=== PATIENT | female | born 1990 | race Caucasian/White ===

== ENCOUNTER 2017-06-26 01:40 | Inpatient (IN) | END 2017-06-27 16:12 | disposition home or self-care (01) | DRG 775 ==

== ENCOUNTER 2018-10-07 03:07 | Inpatient (IN) | payer MEDICAID, OTHER ==
[~2018-10-07] VITALS: Ht 152.4 cm; Wt 65.9 kg
[~2018-10-07 03:07] MED LIST: FOLI0.4T2 PO; PREN-19 PO
[2018-10-07 03:28] VITALS: BP 108/57; PULSE 60; RESP 16
[2018-10-07] MEDS ORDERED: LACTATED RINGER'S 1,000 ML IV PRN (04:16)
[2018-10-07] MEDS ORDERED: LACTATED RINGER'S 1,000 ML IV SCH (04:16)
[2018-10-07] MEDS ORDERED: MISOPROSTOL 200 MCG TAB PR PRN ×2 (04:30→09:00)
[2018-10-07] MEDS ORDERED: OXYTOCIN 30 UNITS/LR 500 ML IV SCH ×2 (04:30)
[2018-10-07] MEDS ORDERED: CARBOPROST 250 MCG INJ IM PRN ×2 (04:30→09:00)
[2018-10-07] MEDS ORDERED: AMPICILLIN 2 GM/NS (PMX) 100 ML IV ONE (04:30)
[2018-10-07] MEDS ORDERED: METHYLERGONOVINE 0.2 MG INJ IM PRN ×2 (04:30→09:00)
[2018-10-07] MEDS ORDERED: IBUPROFEN 600 MG TAB PO PRN (04:30)
[2018-10-07] MEDS ORDERED: BUTORPHANOL 2 MG INJ IV PRN ×2 (04:30)
[2018-10-07] MEDS ORDERED: LIDOCAINE 1% (MPF) 30 ML INJ INJ PRN (04:30)
[2018-10-07] MEDS ORDERED: MINERAL OIL LIGHT 10 ML VIAL TOP ONE (04:30)
[2018-10-07] MEDS ORDERED: OXYTOCIN 30 UNITS/LR 500 ML IV PRN ×2 (04:30→09:00)
--- NOTE | 2018-10-07 04:34 | TRIAGE ---
OB Triage Datetime Report Generated by CPN: 10/07/2018 04:33 Datetime: 10/07/2018 03:41 Stage of : OB Triage Labor Evaluation Frequency: 5-7 Monitor Mode: External Duration (sec)2399: 60 Quality: Moderate Pattern: Normal: <= 5 Contractions in 10 Minutes Resting Tone [place]: Relaxed Heart Rate FHR Baseline Rate: 135 Monitor Mode: External US FHR Baseline Changes: No Baseline Change Variability: Moderate 6-25 bpm Accelerations: 15X15 Decelerations: Variable Category: Category II Vaginal Exam Dilatation (cms): 3.0 Effacement (%): 80 Station: -2 Exam By: Yvrose Squires Membrane Status: Intact Vaginal Bleeding: Scant Cervix, Consistency: Soft Cervix, Position: Posterior Presentation 'A': Cephalic Datetime: 10/07/2018 03:24 Time of Arrival: 10/07/2018 03:02 EGA: 38.4 Arrived By: Wheelchair Arrived From: Home Chief Complaint: c/o ucs and discharge Movement: Present Contractions: Regular Time Contractions Began: 10/06/2018 23:00 Contractions: Q5 Rupture of Membranes: Denies Vaginal Bleeding: None Vaginal Discharge: Present Recent Sexual Intercouse: Denies Abdominal Trauma: Not Applicable Patient Complaints: Contractions Time Provider Notified: 10/07/2018 04:10 Provider Notified: Dr Rock Initial Plan: EFM,SVE,UA,URINE CULTURE Datetime: 10/07/2018 03:17 Stage of : OB Triage Maternal Assessment Level of Consciousness: Keenly Alert, Responsive Headache: Denies Blurred Vision: No Nausea/Vomiting: Denies RUQ Epigastric Pain: Denies Facial Edema: None Monitor Mode: External Resting Tone [place]: Relaxed Heart Rate FHR Baseline Rate: 130 Monitor Mode: External US Pain Assessment Pain Scale: 9 Pain Presence: Intermittent Pain Type: Contraction Pain Location: Abdomen
[2018-10-07] MEDS ORDERED: AMPICILLIN 2 GM/NS (PMX) 100 ML ONE (04:50)
[2018-10-07 08:15] VITALS: BP 104/59; PULSE 65; RESP 18
[2018-10-07] MEDS ORDERED: AMPICILLIN 1 GM/NS (PMX) 50 ML IV SCH (08:30)
[2018-10-07] MEDS: SENNA/DOCUSATE NA (8.6MG/50MG) TAB PO SCH ×2 (09:00→20:38)
[2018-10-07] MEDS ORDERED: LANOLIN HPA 1 PKT TOP PRN (09:00)
[2018-10-07] MEDS ORDERED: ZOLPIDEM 5 MG TAB PO PRN (09:00)
[2018-10-07] MEDS ORDERED: OXYCODONE/ASPIRIN (4.88/325) TAB PO PRN ×2 (09:00)
[2018-10-07] MEDS ORDERED: WITCH HAZEL/GLYCERIN PAD PR PRN (09:00)
[2018-10-07] MEDS ORDERED: BENZOCAINE 20% 56 ML SPRAY TOP PRN (09:00)
[2018-10-07] MEDS: IBUPROFEN 600 MG TAB PO SCH ×4 (10:53→23:51)
--- NOTE | 2018-10-07 10:54 | HP ---
Date/Time of Note Date/Time of Note DATE: 10/07/18 TIME: 10:45 OB - History Hx of Present Free Text/Dictation 28 y.[id number] at 38w4d in labor with intact membrane. Initial VE 380/-2 CAT II tracing initially UC q 2-4min apart since 2300 10/06/18 2300 noo record is available admitted for expectant management. Chief Complaint: uc's Estimated Due Date: Oct 07, 2018 : 3 Para: 2 Care: Other Ultrasounds: Other Obstetrical Complications: None Medical Complications: None Past Family/Social History * Past Medical, Surgical, Family and Obstetric Histories reviewed from chart. Blood Type: Unknown Rubella: unknown RPR/VDRL: Unknown GBS Status: Unknown HBsAG: Negative OB Admission Exam Vital Signs Vital Signs Vital Signs Date Temp Pulse Resp B/P (MAP) Pulse Ox O2 O2 Flow FiO2 Time Delivery Rate 10/07/18 97.9 60 16 108/57 Room Air 03:28 (74) Physical Exam HEENT: WNL Heart: Rhythm Normal Lungs: Clear, Equal Abdomen: WNL Extremities: Normal Reflexes: Normal Cervical Dilatation: 3cm Effacement: Other (80%) Station: -2 Membranes: Intact Amniotic Fluid: Unevaluable Heart Rate: 130's Accelerations: Accelerations Present Decelerations: Early Decelerations Varibility: Minimum Contractions on Admission: < 5 Minutes Apart Intensity: Moderate Last 72 hours Lab Results CBC & BMP 10/07/18 04:40 OB Assessment/Plan Other Assessment: IUP 38w4d in early labor Plan: Expectant Management VARGHESE DELATORRE MD Oct 07, 2018 10:53
[2018-10-07 12:00] VITALS: BP 101/50; PULSE 60; RESP 18
[2018-10-07 16:25] VITALS: BP 109/54; PULSE 60; RESP 16
--- NOTE | 2018-10-07 19:55 | LDN ---
Date/Time of Note Date/Time of Note DATE: 10/07/18 TIME: 19:52 Delivery Summary of normal female Weeks of Gestation 38w4d Placenta Delivered: Spontaneously, Intact & Complete Meconium: none Episiotomy: No Perineal laceration: 0 Laceration repair: 000ch gut for small vaginal lceration Anesthesia type: None Estimated blood loss: 100 Sponge & Needle done & correct: Yes All needle counts correct: Yes Any foreign bodies felt in the: No Delivery Information Sex Sex: female Apgars 1 Minute: 9 5 Minute: 9 Suctioning Nose & mouth suctioned at nithin: Yes Delee suction performed: Yes Umbilical Cord Umbilical cord with: 3 Vessels Cord presentations: no nuchal cord Cord Blood was obtained: Yes Mother & Baby Disposition Disposition Mom & Baby to Maternity; Good: Yes Mom transferred to: Other Baby to NICU: No () VARGHESE DELATORRE MD Oct 07, 2018 19:55
[2018-10-07 20:30] VITALS: BP 97/54; PULSE 64; RESP 18
[2018-10-08] VITALS: BP 101/59; PULSE 61; RESP 18
[2018-10-08] MEDS ORDERED: OXYCODONE/ASPIRIN (4.88/325) TAB PO PRN ×2 (00:30)
[2018-10-08] MEDS ORDERED: MISOPROSTOL 200 MCG TAB PR PRN (00:30)
[2018-10-08] MEDS ORDERED: CARBOPROST 250 MCG INJ IM PRN (00:30)
[2018-10-08] MEDS ORDERED: LANOLIN HPA 1 PKT TOP PRN (00:30)
[2018-10-08] MEDS ORDERED: ZOLPIDEM 5 MG TAB PO PRN (00:30)
[2018-10-08] MEDS ORDERED: WITCH HAZEL/GLYCERIN PAD PR PRN (00:30)
[2018-10-08] MEDS ORDERED: METHYLERGONOVINE 0.2 MG INJ IM PRN (00:30)
[2018-10-08] MEDS ORDERED: BENZOCAINE 20% 56 ML SPRAY TOP PRN (00:30)
[2018-10-08] MEDS ORDERED: OXYTOCIN 30 UNITS/LR 500 ML IV PRN (00:30)
[2018-10-08 04:15] VITALS: BP 95/52; PULSE 61; RESP 18
[2018-10-08] MEDS: IBUPROFEN 600 MG TAB PO SCH ×4 (05:45→23:57)
[2018-10-08 08:00] VITALS: BP 100/55; PULSE 60; RESP 18
[2018-10-08] MEDS: SENNA/DOCUSATE NA (8.6MG/50MG) TAB PO SCH ×2 (12:19→22:01)
[2018-10-08 18:03] VITALS: BP 101/56; PULSE 62; RESP 18
--- NOTE | 2018-10-08 20:40 | PD.PPDC ---
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
--- NOTE | 2018-10-08 20:41 | DS ---
Date/Time of Note Date/Time of Note DATE: 10/08/18 TIME: 20:40 Obstetrical Discharge Record Final Diagnosis Final Diagnosis: Term delivered Vaginal Delivery Obstetrical Delivery: Spontaneous, Laceration, Repaired Condition on Discharge Physical Assessment Last Vitals: stable afebrile Voiding: Yes Bowel Movement: Yes Breast: Soft, non-tender, Filling Fundus: Firm Abdomen and Incision: soft nt Calf Tenderness: No Patient Condition: Fair BLADE DIETRICH MD Oct 08, 2018 20:41
[2018-10-08 21:50] VITALS: BP 103/56; PULSE 72; RESP 20
[2018-10-09 04:10] VITALS: BP 101/62; PULSE 67; RESP 18
[2018-10-09] MEDS: IBUPROFEN 600 MG TAB PO SCH (05:47)
[2018-10-09 07:30] VITALS: BP 100/59; PULSE 71; RESP 16
[2018-10-09] MEDS ORDERED: DIPHTH/TET/ACEL PERTUSS (ADULT) 0.5 ML VIAL IM* ONE (09:00)
[2018-10-09] MEDS: SENNA/DOCUSATE NA (8.6MG/50MG) TAB PO SCH (09:06)
--- NOTE | 2018-10-10 11:47 | DELSUM ---
Delivery Summary A-C Datetime Report Generated by CPN: 10/10/2018 11:47 DELIVERY PERSONNEL Chief Librarian Work With Blind: Yahir, Nidhi MATERNAL INFORMATION Delivery Anesthesia: None Medications in Delivery: LR WITH 30 UNITS OF PITOCIN/LIDOCAINE Delivery QBL (ml): 100 Placenta Cultured: No Maternal Complications: None LABOR SUMMARY EDC: 10/17/2018 00:00 No. Babies in Womb: 1 Attempted: No Labor Anesthesia: None LABOR INFORMATION Reason for Induction: Not Applicable Onset of Labor: 10/06/2018 23:00 Complete Dilatation: 10/07/2018 05:23 Oxytocin: N/A Group B Beta Strep: Done, Result Unknown Antibiotics # of Doses: AMPICILLIN Antibiotics Time of Last Dose: 10/07/2018 04:56 Steroids Given: None Reason Steroids Not Administered: Not Applicable MEMBRANES Membranes Rupture Method: Spontaneous Rupture of Membranes: 10/07/2018 05:15 Length of Rupture (hr): 0.20 Amniotic Fluid Color: Clear Amniotic Fluid Amount: Moderate Amniotic Fluid Odor: None STAGES OF LABOR Stage 1 hr: 6 Stage 1 min: 23 Stage 2 hr: 0 Stage 2 min: 4 Stage 3 hr: 0 Stage 3 min: 3 Total Time in Labor hr: 6 Total Time in Labor min: 30 VAGINAL DELIVERY Episiotomy: None Laceration Extension: First Degree Laceration Type: Vaginal Laceration Repair: Yes Initial Vag Sponge Count: 10 Final Vag Sponge Count: 10 Initial Vag Sharps Count: 1 Final Vag Sharps Count: 2 Sharps Count Correct: Yes BABY A INFORMATION Infant Delivery Date/Time: 10/07/2018 05:27 Method of Delivery: Vaginal Born in Route : No : N/A Forceps: N/A Vacuum Extraction: N/A Shoulder Dystocia : No SHOULDER DYSTOCIA BABY A Infant Delivery Date/Time: 10/07/2018 05:27 PRESENTATION/POSITION BABY A Presentation: Cephalic Cephalic Presentation: Vertex Vertex Position: Left Occipital Anterior Breech Presentation: N/A PLACENTA INFORMATION BABY A Placenta Delivery Time : 10/07/2018 05:30 Placenta Method of Delivery: Spontaneous Placenta Status: Delivered SCORES BABY A Heart Rate 1 min: >100 bpm Resp Effort 1 min: Good Cry Reflex Irritability 1 min: Cough/Sneeze/Pulls Away Muscle Tone 1 min: Active Motion Color 1 min: Body [place], Extremit Blue Resuscitation Effort 1 min: Tactile Stimulation SCORE 1 MIN: 9 Heart Rate 5 min: >100 bpm Resp Effort 5 min: Good Cry Reflex Irritability 5 min: Cough/Sneeze/Pulls Away Muscle Tone 5 min: Active Motion Color 5 min: Body [place], Extremit Blue Resuscitation Effort 5 min: Tactile Stimulation SCORE 5 MIN: 9 INFANT INFORMATION BABY A Gestational Age at Delivery: 38.4 Gestational Status: Early Term- 37- 38.6 Weeks Infant Outcome : Liveborn, with signs of life Condition : Stable Sex: Male IDENTIFICATION/MEDS BABY A ID Band Number: [id number] ID Band Location: Right Leg; Left Arm Sensor Applied: Yes Sensor Number: [id number] Sensor Location : Cord Clamp Vitamin K Given : Not Given Erythromycin Given: Not Given WEIGHT/LENGTH BABY A Infant Birthweight (gm): 3315 Infant Weight (lb): 7 Weight (oz): 5 Infant Length (in): 20.00 Length (cm): 50.80 CORD INFORMATION BABY A No. Cord Vessels: 3 Nuchal Cord : N/A Cord Blood Taken: Yes Infant Suction: Mouth; Nose ASSESSMENT BABY A Infant Complications: Multiple Variable Decels Physical Findings at Delivery: Within Normal Limits Physical Findings- Other: VOIDED X1 Infant Respirations: Appears Normal Disaster Recovery Coordinator/ALS Called : No Infant Care By: Kranthi NOLASCO RN AND Kareem ENRIQUEZ RT Transferred To: Remains with Mother
== END 2018-10-09 11:30 | disposition home or self-care (01) | DRG 807 ==
LOC: OBT 03:07 → L-D 03:07 → OBT 04:10 → PP1 08:05
PROVIDERS: ADMIT Obstetrics & Gynecology; ATTEND Obstetrics & Gynecology
PROC: 10E0XZZ Delivery of Products of Conception, External Approach (ICD-10-PCS; principal; 2018-10-07)
PROC: 0HQ9XZZ Repair Perineum Skin, External Approach (ICD-10-PCS; 2018-10-07)
DX: O70.0 First degree perineal laceration during delivery (principal); Z37.0 Single live birth; Z3A.38 38 weeks gestation of pregnancy
CPT/HCPCS: 81001; 81003; 85025; 85610; 85730; 86592; 86762; 86850; 86900; 86901; 87086; 87340; 99464; G0463; J0290; J2590; J7120